=== PATIENT | male | born 2000 | race Caucasian/White ===

== ENCOUNTER 2020-05-01 10:21 | Emergency (ER) | payer MEDICAID ==
[~2020-05-01] VITALS: Ht 175.3 cm; Wt 68.2 kg
[2020-05-01 10:26] VITALS: BP 99/68
== END 2020-05-01 10:49 | disposition home or self-care (01) ==
LOC: ER 10:22
DX: U07.1 COVID-19 (principal); R06.02 Shortness of breath; R43.8 Other disturbances of smell and taste
CPT/HCPCS: 36415; 87635; 99283